=== PATIENT | female | born 1985 | race Caucasian/White ===

== ENCOUNTER → 2018-08-03 | Day surgery (SDC) | payer BC ==
[~2018-08-03] MED LIST: FENTANYL CITRATE/PF 100MCG/2 ML INJ ONE; METFORMIN HCL500 MG PO; MIDAZOLAM HCL 2 MG/2 ML VIAL ONE; OZEMPIC INJ; PROPOFOL IV EMULSION 10 MG/ML 50 ML VIAL ONE; SULFASALAZINE500 MG PO; TOPAMAX PO; [UNRECOGNIZED DRUG - OTHER] PO
--- OUTSIDE RECORDS SUMMARY | 2018-08-03 10:59 | XMS REPORT | Encounter Summary ---
Author Organization Unknown Address [address] [place] [address] Phone [phone] Reason for Visit Medical Complaint Instructions 1. Influenza-like symptoms rapid flu (A+B) 2. Acute pharyngitis rapid strep group A, throat sore throat: care instructions Lidocaine Viscous 2 % mucosal solution 3. Exposure to streptococcal pharyngitis amoxicillin 875 mg tablet Discussion Note F/U with your PCP within 3-5 days if s/s continue or worsen. Handout that was given and reviewed and pt verbalized understanding. For worsenening symptoms or shortness/ chest pain develop F/U with ER NATHEN. Plan of Care Patient Instructions Take charge of your health handout given and discussed. Reminders Provider Appointments None recorded. Lab Rapid Strep Group a, Throat 01/07/2017 [facility] Rapid Flu (A+B) 01/07/2017 [facility] Referral None recorded. Procedures None recorded. Surgeries None recorded. Imaging None recorded. Medications Name Start Date amoxicillin 875 mg tablet Take 1 tablet every 12 hours by oral route with meals for 10 days. amoxicillin 875 mg-potassium clavulanate 125 mg tablet azithromycin 500 mg tablet BD Ultra-Fine Venita Pen Sprakers 32 gauge x 5/32" cephalexin 500 mg capsule clomiphene citrate 50 mg tablet fluconazole 100 mg tablet fluconazole 150 mg tablet fluticasone 50 mcg/actuation nasal spray,suspension ibuprofen 600 mg tablet letrozole 2.5 mg tablet levothyroxine 50 mcg tablet levothyroxine 75 mcg tablet lidocaine 2 % mucosal jelly Lidocaine Viscous 2 % mucosal solution Take 15 mL every 3 hours by oral route as needed. medroxyprogesterone 10 mg tablet metformin ER 500 mg tablet,extended release 24 hr methylprednisolone 4 mg tablets in a dose pack oseltamivir 75 mg capsule prednisone 20 mg tablet promethazine-DM 6.25 mg-15 mg/5 mL syrup sulfamethoxazole 800 mg-trimethoprim 160 mg tablet Victoza 2-Bjorn 0.6 mg/0.1 mL (18 mg/3 mL) subcutaneous pen injector INJ 1.8 MG SC D Vitamin D2 50,000 unit capsule Medications Administered None recorded. Vitals Height Weight BMI Blood Pressure 5 ft 5 in 260 lbs 43.3 100/78 Lab Results Date Name Specimen Result Interpretation Description Value Range Status Address Rapid Flu (A+B) Influenza a negative [facility]: [facility] Influenza B negative [facility]: [address] [place] [address] Rapid Strep Group a, Throat Result negative [facility]: [facility] Swab Location Left and Right tonsillar pillars [facility]: [facility] Allergies Code Code System Name Reaction Severity Onset NKDA Problems None recorded. Procedures Date Name Performed by Laparoscopy Lymphadenectomy Information not available Appendectomy Information not available Tonsillectomy Information not available Vaccine List None recorded. 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 History of Present Illness Throat-Oral Complaint Reported By: Patient HPI: Location: throat. Quality: sore throat. Severity: moderate. Duration: 1 days. Onset/Timing: sudden. Context: no foreign travel, non-smoker, sick contact. Modifying factors: OTC medication. Associated Symptoms: no fever, no headache, no sputum production, no shortness of breath, no wheezing, no change in number of pillows needed to sleep at night, no sweats, no significant weight gain, no significant weight loss, no morning cough, no vomiting, no diarrhea, no rash, no nausea, fever, body aches, sore throat Review of Systems Basic Reported By: Patient Cngw-Syzm-Tzyos-Throat: Ears: no ear complaints Neurologic: Neurologic: no dizziness Physical Exam Adult Basic, Adult Female Complete Reported By: Patient Constitutional: General Appearance: healthy-appearing, morbidly obese. Level of Distress: NAD. Ambulation: ambulating normally Psychiatric: Mental Status: active and alert. Orientation: to time, to place, to person Eyes: Lids and Conjunctivae: non-injected, no discharge, no pallor. Pupils: PERRLA. Sclerae: non-icteric Jkx-Rsub-Evilg-Throat: Ears: no lesions on external ear, no outer ear tenderness, EACs clear, TMs clear. Hearing: no hearing loss. Nose: no lesions on external nose, nares patent, no septal deviation, nasal passages clear, no sinus tenderness, no nasal discharge. Lips, Teeth, and Gums: no mouth or lip ulcers. Oropharynx: moist mucous membranes, no exudates, erythema, tonsils absent Neck: Neck: supple. Lymph Nodes: anterior cervical LAD Lungs: Respiratory effort: no dyspnea, no tachypnea, no use of accessory muscles, no intercostal retractions. Auscultation: breath sounds normal Cardiovascular: Heart Auscultation: RRR, no murmurs Neurologic: Gait and Station: normal gait, normal station
--- OUTSIDE RECORDS SUMMARY | 2018-08-03 10:59 | XMS REPORT | Continuity of Care Document ---
Author Author [facility] Interface Address Unknown Phone Unavailable Problems Problem Status Onset Date Classification Date Reported Comments Source Influenza-like symptoms 01/07/2017 Diagnosis 01/07/2017 [facility] Acute pharyngitis 01/07/2017 Diagnosis 01/07/2017 [facility] Exposure to streptococcal pharyngitis 01/07/2017 Diagnosis 01/07/2017 [facility] Medications Medication Details Route Status Patient Instructions Ordering Provider Order Date Source Amoxicillin 875 MG Oral Tablet amoxicillin 875 mg tablet Take 1 tablet every 12 hours by oral route with meals for 10 days. Active [facility] Amoxicillin 875 MG / Clavulanate 125 MG Oral Tablet amoxicillin 875 mg-potassium clavulanate 125 mg tablet Active [facility] Azithromycin 500 MG Oral Tablet azithromycin 500 mg tablet Active [facility] BD Ultra-Fine Venita Pen [place] 32 gauge x 5/32" BD Ultra- Fine Venita Pen [place] 32 gauge x 5/32" Active [facility] Cephalexin 500 MG Oral Capsule cephalexin 500 mg capsule Active [facility] Clomiphene Citrate 50 MG Oral Tablet clomiphene citrate 50 mg tablet Active [facility] Fluconazole 100 MG Oral Tablet fluconazole 100 mg tablet Active [facility] Fluconazole 150 MG Oral Tablet fluconazole 150 mg tablet Active [facility] Fluticasone propionate 0.05 MG/ACTUAT Metered Dose Nasal Stollings fluticasone 50 mcg/actuation nasal spray,suspension Active [facility] Ibuprofen 600 MG Oral Tablet ibuprofen 600 mg tablet Active [facility] letrozole 2.5 MG Oral Tablet letrozole 2.5 mg tablet Active [facility] Levothyroxine Sodium 0.05 MG Oral Tablet levothyroxine 50 mcg tablet Active [facility] Levothyroxine Sodium 0.075 MG Oral Tablet levothyroxine 75 mcg tablet Active [facility] Lidocaine Hydrochloride 0.02 MG/MG Topical Gel lidocaine 2 % mucosal jelly Active [facility] Lidocaine Hydrochloride 20 MG/ML Mucous Membrane Topical Solution Lidocaine Viscous 2 % mucosal solution Take 15 mL every 3 hours by oral route as needed. Active [facility] medroxyprogesterone acetate 10 MG Oral Tablet medroxyprogesterone 10 mg tablet Active [facility] 24 HR Metformin hydrochloride 500 MG Extended Release Oral Tablet metformin ER 500 mg tablet,extended release 24 hr Active [facility] methylprednisolone 4 mg tablets in a dose pack methylprednisolone 4 mg tablets in a dose pack Active [facility] Oseltamivir 75 MG Oral Capsule oseltamivir 75 mg capsule Active [facility] Prednisone 20 MG Oral Tablet prednisone 20 mg tablet Active [facility] Dextromethorphan Hydrobromide 3 MG/ML / Promethazine Hydrochloride 1.25 MG/ML Oral Solution promethazine-DM 6.25 mg-15 mg/5 mL syrup Active [facility] Sulfamethoxazole 800 MG / Trimethoprim 160 MG Oral Tablet sulfamethoxazole 800 mg-trimethoprim 160 mg tablet Active [facility] 3 ML liraglutide 6 MG/ML Pen Injector [Victoza] Victoza 2-Bjorn 0.6 mg/0.1 mL (18 mg/3 mL) subcutaneous pen injector INJ 1.8 MG SC D Active [facility] Ergocalciferol 00726 UNT Oral Capsule Vitamin D2 50,000 unit capsule Active [facility] Allergies, Adverse Reactions, Alerts Substance Category Reaction Severity Reaction type Status Date Reported Comments Source Immunizations Immunization Date Given Site Status Last Updated Comments Source Results Order Name Results Value Reference Range Date Interpretation Comments Source Influenza A negative 01/07/2017 [facility] Influenza B negative 01/07/2017 [facility] RESULT negative 01/07/2017 [facility] SWAB LOCATION Left and Right tonsillar pillars 01/07/2017 [facility] Vital Signs Vital Sign Value Date Comments Source Diastolic (mm Hg) 78 01/07/2017 [facility] Height 65 01/07/2017 [facility] Systolic (mm Hg) 100 01/07/2017 [facility] Weight 260 01/07/2017 [facility] Encounters Location Location Details Encounter Type Encounter Number Reason For Visit Attending Provider ADM Date DC Date Status Source [place] - [facility] - [id number] Radha Husain, [employer]: [address] [address] [place] [address], Ph. [id number] Radha Husain 01/07/2017 [facility] Procedures Procedure Code Date Perfomer Comments Source Laparoscopy Lymphadenectomy [facility] Appendectomy [facility] Tonsillectomy [facility]
[2018-08-03 14:55] VITALS: BP 118/79
--- NOTE | 2018-08-03 14:57 | Operative Report ---
DATE OF PROCEDURE: August 03, 2018 REFERRING PHYSICIAN: Sd Aquino MD PROCEDURE PERFORMED: Esophagogastroduodenoscopy. INDICATIONS FOR EGD: Upper abdominal pain, heartburn, excessive belching. MEDICATION: Patient was done under MAC. Please see anesthesiologist's note. PROCEDURE: With the patient in the left lateral decubitus position, the flexible fiberoptic Olympus gastroscope was introduced into the esophagus under direct visualization without any difficulty. There was some patchy erythema noted in the distal esophagus. The scope was then advanced with ease into the stomach. Mucosa overlying the antrum and the body revealed some patchy erythema and low-grade to moderate edema, and biopsies were obtained and sent to stain for H. pylori. Pylorus appeared to be of normal contour and shape. It was intubated with ease, and the scope was advanced all the way to the 2nd portion of the duodenum. Biopsies were obtained from the proximal 2nd portion and the duodenal bulb to rule out sprue considering the patient's history of diarrhea and weight loss. The scope was then withdrawn back into the stomach and retroflexed. Mucosa overlying the fundus and the cardia appeared to be within normal limits. The scope was then straightened out. It was subsequently withdrawn. Patient tolerated the procedure well. IMPRESSION 1. Distal esophagitis. 2. Gastritis, biopsied. Biopsy sent to stain for H. pylori. 3. Rule out sprue. PLAN: Follow up histology. Initiate Protonix 40 mg 1 p.o. q.a.m. a.c. Job#: [id number] cc:SD AQUINO MD
== END | disposition home or self-care (01) ==
LOC: OR 10:56
PROVIDERS: ATTEND Internal Medicine Gastroenterology
DX: K29.50 Unspecified chronic gastritis without bleeding (principal); K20.9 Esophagitis, unspecified; K21.9 Gastro-esophageal reflux disease without esophagitis; E28.2 Polycystic ovarian syndrome; R03.0 Elevated blood-pressure reading, without diagnosis of hypertension; E11.9 Type 2 diabetes mellitus without complications; M06.9 Rheumatoid arthritis, unspecified; Z79.84 Long term (current) use of oral hypoglycemic drugs; Z68.36 Body mass index [BMI] 36.0-36.9, adult
CPT/HCPCS: 36415; 43239; 81025; 82948; 93005; J2250